=== PATIENT | female | born 1970 | race Two or more races ===

== ENCOUNTER → 2017-02-07 | Outpatient (CLI) | payer OTHER ==
[~2017-02-07] VITALS: Ht 160 cm; Wt 72.6 kg
[~2017-02-07] MED LIST: LIDOCAINE 1%/EPI 1:100,000 20 ML VIAL. INJ ONE; LIDOCAINE 2%/EPI 1:100,000 20 ML VIAL. IJ ONE
[2017-02-07 08:59] VITALS: BP 102/47
--- NOTE | 2017-02-08 16:08 | PATHOLOGY ---
PATHOLOGY REPORT * * * * * * * * FINAL DIAGNOSIS: Breast tissue, left breast mass needle biopsy: - Fibrocystic changes with the following components; a. Cystic change, with focal squamous metaplasia. b. Duct ectasia. c. Stromal fibrosis. d. Chronic inflammation. e. Mild ductal epithelial hyperplasia, focal. COMMENT: There is no atypia or evidence of malignancy. (JPM:mgabdullahi; d/t: 02/08/17) REPORT ELECTRONICALLY SIGNED BY: Sudhakar Duong M.D. DATE/TIME: 02/08/2017 16:07 * * * * * * * * GROSS PATHOLOGY: Received in formalin labeled "Augusto Francis and left breast," are multiple needle cores of yellow-escobar fibrofatty tissue measuring 2.7 x 1.7 x 0.3 cm in aggregate dimensions. The tissue is submitted in its entirety in cassettes A1-A3. The cold ischemic time is 5 minutes. The total formalin fixation time is 12 hours and 10 minutes. (TTL; 02/07/2017) INITIAL CPT CODE(S): A; 02874 Professional services performed [place] [facility] [place] [address] Technical services performed by [facility] at [address] [place] [address], [facility] [address] [place] [address]. SPECIMEN(S) RECEIVED: A.Left breast mass CLINICAL HISTORY: Left breast mass PATIENT: AUGUSTO FRANCIS /AGE: 5 1970 (Age: 46) PATIENT #: [id number] ALT CASE #: SPECIMEN COLLECTION DATE: 02/07/2017 SPECIMEN RECEIVED DATE: 02/07/2017 [facility] - [address] [place] [address] - PHONE: [phone] * * * END OF REPORT * * *
--- NOTE | 2017-02-09 11:49 | RAD ---
Ultrasound-guided vacuum-assisted left breast biopsy, 02/07/2017: History: Suspicious breast nodule An outside studies demonstrated a small hypoechoic nodule at the 3:00 location approximately 1 cm from the nipple. There are multiple nearby dilated ducts and simple cyst. Under local anesthesia, aseptic conditions and sonographic guidance the [employer] biopsy instrument was passed into the posterior aspect of this nodule via an inferolateral approach. Multiple 12-gauge vacuum-assisted core samples were obtained. The lesion probably disappeared during the biopsy process suggesting that lesion was predominantly cystic. A biopsy marker was deposited at the biopsy site. The biopsy instrument was then removed and hemostasis obtained. Two-view postprocedural mammograms were then obtained to document position of the biopsy marker. It lies along the medial aspect of the biopsy site near the midline. The patient tolerated the procedure well and left the department in good condition. The subsequent pathology report indicated the presence of fibrocystic change with duct ectasia and stromal fibrosis and no evidence of malignancy. The findings are considered to be concordant.
== END | disposition home or self-care (01) ==
LOC: US 08:22
PROVIDERS: ATTEND Surgery
DX: R92.8 Other abnormal and inconclusive findings on diagnostic imaging of breast (principal)
CPT/HCPCS: 19081; 76942; C1713; G0206; 77065

== ENCOUNTER → 2017-02-15 | Day surgery (SDC) | payer OTHER ==
[~2017-02-15] VITALS: Ht 160 cm; Wt 76.2 kg
[~2017-02-15] MED LIST changes: +BUPIVAC MPF-EPI 0.5%-1:200000 30 ML VIAL. ONE; +CEFAZOLIN 2GM PREMIX 50 ML IV PRN; +EPHEDRINE PF IN SALINE 50 MG/5 ML DISP.SYRIN. IV ONE; +FAMOTIDINE 20 MG/2 ML VIAL ONE; +FENTANYL PF 100 MCG/2 ML VIAL. IV PRN; +FENTANYL PF 100 MCG/2 ML VIAL. ONE; +HYDR-971 PO; +HYDROCODONE/APAP 5/325MG TABLET. ONE; +HYDROCODONE/APAP 5/325MG TABLET. PO ONE; +HYDROMORPHONE 2 MG/ML VIAL. IV PRN; +IV RINGERS,LACTATED 1000ML 1,000 ML IV SCH; +LIDOCAINE 1% 1 ML SYRINGE. ID PRN; -LIDOCAINE 1%/EPI 1:100,000 20 ML VIAL. INJ ONE; +LIDOCAINE 2% 100 MG/5 ML SYRINGE. ONE; -LIDOCAINE 2%/EPI 1:100,000 20 ML VIAL. IJ ONE; +ONDANSETRON PF 4 MG/2 ML VIAL. IV PRN; +ONDANSETRON PF 4 MG/2 ML VIAL. ONE; +PROCHLORPERAZINE 10 MG/2 ML VIAL. IV PRN; +PROPOFOL 20 ML IV ONE
[2017-02-15 09:18] LABS: NEG OBC UR NEG; POS OBC UR POS
--- NOTE | 2017-02-15 10:58 | DISCH ---
DISCHARGE INSTRUCTIONS Condition on Discharge Condition on Discharge: Stable Activity After Discharge Activity Instructions for Disc: Activity as tolerated, Avoid exertion Driving Instructions after Dis: Do not drive today Diet after Discharge Diet after Discharge: Regular Wound Incision Care Other wound/incision instructi: march show Follow-Up Follow Up With: Marko next week JACQUELINE BEGUM MD Feb 15, 2017 10:58
--- NOTE | 2017-02-15 11:02 | PDOC ---
BRIEF OPERATIVE NOTE Date: Feb 15, 2017 Pre-Op Diagnosis right breast mass Post-Op Diagnosis same Procedure Performed excisional biopsy Surgeon Marko Anesthesia Type: General Blood Loss 10cc IV Fluid 700cc Specimens Obtained right breast mass, 11:00 Findings fibrocystic changes Complications none Additional Remarks # [id number] JACQUELINE BEGUM MD Feb 15, 2017 11:02
[2017-02-15] MEDS: FENTANYL PF 100 MCG/2 ML VIAL. IV PRN ×3 (11:04→11:42)
[2017-02-15] MEDS: MORPHINE SULFATE 2 MG/ML DISP.SYRIN. IV PRN ×2 (11:49→12:00)
[2017-02-15 12:28] VITALS: BP 123/66
--- NOTE | 2017-02-15 12:44 | OP ---
DATE OF SURGERY: 02/15/2017 PREOPERATIVE DIAGNOSIS: Right breast mass, 11 o'clock. POSTOPERATIVE DIAGNOSIS: Right breast mass, 11 o'clock. PROCEDURE: Excisional biopsy. SURGEON: Jacqueline Begum MD ANESTHESIA: General. ESTIMATED BLOOD LOSS: 10 mL. INTRAVENOUS FLUIDS: 700 mL. DESCRIPTION OF PROCEDURE: The patient brought to the operating suite, given a general LMA; the right breast was prepped and draped in usual sterile fashion. A curvilinear incision in the upper outer quadrant, which had been marked with the patient's assistance preop, was infiltrated with local anesthetic, sharply incised and the underlying fibrous tissue removed sharply. Hemostasis with cautery. When present and a correct sponge count was obtained, the breast tissue was approximated with 3-0 Vicryl. The skin was closed with a subcuticular 4-0 Monocryl and Steri-Strips. Sterile dressings applied. The patient awakened from her anesthetic, and taken to the recovery room in satisfactory condition. JACQUELINE BEGUM MD DR: [id number]/[id number] JOB#: [id number] / [id number]
--- NOTE | 2017-02-17 15:34 | PATHOLOGY ---
PATHOLOGY REPORT * * * * * * * * FINAL DIAGNOSIS: Breast tissue, right breast mass excisional biopsy: - Fibrocystic changes with the following components: a. Stromal fibrosis. b. Duct ectasia. c. Cysts. d. Apocrine metaplasia. e. Mild ductal epithelial hyperplasia. - Small radial sclerosing lesion with focal mild to moderate ductal epithelial hyperplasia. - Small intraductal papilloma. - Sclerosing adenosis, focal. - Fibroadenomatous change, focal. COMMENT: There is no evidence of atypia or malignancy. (JPM:mgabdullahi; d/t: 02/17/17) REPORT ELECTRONICALLY SIGNED BY: Sudhakar Duong M.D. DATE/TIME: 02/17/2017 15:32 * * * * * * * * GROSS PATHOLOGY: The specimen is received in formalin, labeled "Augusto Boyce, right breast mass 11:00". Received is an unoriented, well-circumscribed segment of bright yellowpale white fibroadipose breast tissue measuring 4.0 x 3.5 x 2.0 cm. The surgical resection margin is inked black. Sectioning reveals a fibrous, pale whiteyellow cut surface with a small clear fluid filled cyst identified measuring 0.2 cm. No solid masses or nodules are identified. The specimen is sectioned and entirely submitted in cassette [id number]. Cold ischemic time is 1 minute. Total formalin fixation time is 32 hours. (SNA; 02/16/2017) INITIAL CPT CODE(S): A; 12039 Professional services performed by [facility] at [address] [address] Technical services performed by [facility] at [address] [place] [address], [facility] [address] [address]. SPECIMEN(S) RECEIVED: A.Right breast mass 11 o'clock CLINICAL HISTORY: Mass of right breast PATIENT: AUGUSTO FRANCIS /AGE: 5 1970 (Age: 46) PATIENT #: [id number] ALT CASE #: SPECIMEN COLLECTION DATE: 02/15/2017 SPECIMEN RECEIVED DATE: 02/15/2017 [facility] - [address] [place] [address] - PHONE: [phone] * * * END OF REPORT * * *
== END | disposition home or self-care (01) ==
LOC: SURG 08:28
PROVIDERS: ATTEND Surgery
DX: N63 Unspecified lump in breast (principal); Z72.89 Other problems related to lifestyle
CPT/HCPCS: 19120; 81025; C1769; J0690; J2270; J2405; J2704; J3010; J3490; S0028; J0780

== ENCOUNTER 2017-02-18 05:27 | Emergency (ER) | payer BC, OTHER ==
[~2017-02-18] VITALS: Ht 160 cm; Wt 77.6 kg
[~2017-02-18 05:27] MED LIST changes: -BUPIVAC MPF-EPI 0.5%-1:200000 30 ML VIAL. ONE; -CEFAZOLIN 2GM PREMIX 50 ML IV PRN; -EPHEDRINE PF IN SALINE 50 MG/5 ML DISP.SYRIN. IV ONE; -FAMOTIDINE 20 MG/2 ML VIAL ONE; -FENTANYL PF 100 MCG/2 ML VIAL. IV PRN; -FENTANYL PF 100 MCG/2 ML VIAL. ONE; -HYDROCODONE/APAP 5/325MG TABLET. ONE; -HYDROCODONE/APAP 5/325MG TABLET. PO ONE; -HYDROMORPHONE 2 MG/ML VIAL. IV PRN; -IV RINGERS,LACTATED 1000ML 1,000 ML IV SCH; -LIDOCAINE 1% 1 ML SYRINGE. ID PRN; -LIDOCAINE 2% 100 MG/5 ML SYRINGE. ONE; -ONDANSETRON PF 4 MG/2 ML VIAL. IV PRN; -ONDANSETRON PF 4 MG/2 ML VIAL. ONE; -PROCHLORPERAZINE 10 MG/2 ML VIAL. IV PRN; -PROPOFOL 20 ML IV ONE
[2017-02-18 06:07] VITALS: BP 104/55
--- NOTE | 2017-02-18 06:49 | PHYS DOC ---
Past Medical History Past Medical History: Cancer, Other Additional Past Medical Histor: bi lat breast ca Past Surgical History: Other Additional Past Surgical Histo: Umbilical hernia,L)ankle,R)knee. bi lat breast lumpectomy Alcohol Use: None Drug Use: None Adult General Chief Complaint Chief Complaint: ITCHING HPI HPI Patient is a 46 year old female who presents with rash. The patient reports undergoing right lumpectomy on 02/[address] Begum, now complaining of pruritic red rash over her chest, neck, & right arm. She denies fevers/chills, face/ tongue/lip swelling, difficulty breathing. She denies erythema/warmth/swelling around surgical site, no purulent drainage. She believes the rash is in the distribution of betadine application prior to surgery. She states she had a similar reaction after left sided lumpectomy. She took norco after surgery but is no longer using as her pain is well controlled. She denies any known drug allergies. Has not taken any medication for this at home. Review of Systems Review of Systems Constitutional: Denies fever or chills HENT: Denies nasal congestion or sore throat Respiratory: Denies cough or shortness of breath Cardiovascular: Denies chest pain or edema GI: Denies abdominal pain, nausea, vomiting Musculoskeletal: Denies back pain or joint pain Integument: reports rash Neurologic: Denies headache Current Medications Current Medications Current Medications Medications (Trade) Dose Ordered Sig/[facility] Start Time Stop Time Status Last Admin Dose Admin Dexamethasone Sodium Phosphate (Decadron) 10 mg 1X ONCE 02/18/17 07:00 02/18/17 07:01 DC Diphenhydramine HCl (Benadryl) 25 mg 1X ONCE 02/18/17 07:00 02/18/17 07:01 DC Allergies Allergies Allergies Coded Allergies Type Severity Reaction Last Updated Verified No Known Drug Allergies 02/15/17 No Physical Exam Physical Exam Constitutional: Well developed, well nourished, no acute distress, non-toxic appearance. HENT: Normocephalic, atraumatic, bilateral external ears normal, oropharynx moist, nose normal. no face/tongue/lip swelling. Eyes: conjunctiva normal, no discharge. Neck: supple, no stridor. Cardiovascular: RRR, no murmurs, no edema. Lungs & Thorax: LCTAB, no wheezing, no respiratory distress. right breast with lateral incision which is clean, dry, intact, no erythema, warmth or swelling, no purulent drainage, steri strips in place Abdomen: nondistended. Skin: erythematous maculopapular rash over neck, upper chest particularly on the right, & right upper extremity. no urticaria.. Back: No tenderness. Extremities: No deformity. Neurologic: Alert and oriented X 3, no focal deficits noted. Psychologic: Affect normal, judgement normal, mood normal. Current Patient Data Vital Signs Vital Signs Date Time Temp Pulse Resp B/P Pulse Ox O2 Delivery O2 Flow Rate FiO2 02/18/17 06:07 97.9 73 16 104/55 99 Room Air 97.9 EKG EKG [] Radiology/Procedures Radiology/Procedures [] Course & Med Decision Making Course & Med Decision Making Pertinent Labs and Imaging studies reviewed. (See chart for details) Patient presents with likely contact dermatitis. She doesn't want to take pills , requesting cream or ointment. Offered IM injection here but encouraged use of benadryl at home. She received benadryl & decadron here in the ED. Recommend benadryl q6 hours, okay to try 1% hydrocortisone if desired. Follow up with Dr. Begum today or Tuesday if symptoms continue. Come back for high fever, face/tongue/lip swelling, difficulty breathing, signs of wound infection , otherwise worsening condition. Discharged home in stable condition. [] Dragon Disclaimer Dragon Disclaimer This electronic medical record was generated, in whole or in part, using a voice recognition dictation system. Departure Departure Impression: Primary Impression: Contact dermatitis Disposition: 01 HOME, SELF-CARE Condition: STABLE Referrals: NO PCP (PCP) JACQUELINE BEGUM MD Patient Instructions: Contact Dermatitis, [id number] Additional Instructions: You were seen in the emergency department today for rash. This could be due to the solution that was used to clean before surgery, or possibly another medication. Please continue to take Benadryl every 6 hours to help with itching and to help the rash resolve. You said that you prefer to use a cream, so you could try using 1% hydrocortisone twice daily, in addition to benadryl. Call Dr. Begum office today to schedule an appointment today or Tuesday. Return to the emergency department for face/tongue/lip swelling, difficulty breathing, hot /red/swollen skin around the surgical site, pus draining from the incision, any otherwise worsening condition. RADHA OWENS MD Feb 18, 2017 06:49
[2017-02-18] MEDS ORDERED: DIPHENHYDRAMINE 50 MG/ML VIAL. IM ONE (07:00)
[2017-02-18] MEDS ORDERED: DEXAMETHASONE SOD PHOS 4 MG/ML VIAL IM ONE (07:00)
== END 2017-02-18 07:28 | disposition home or self-care (01) ==
LOC: ER 05:27
DX: L25.9 Unspecified contact dermatitis, unspecified cause (principal)
CPT/HCPCS: 96372; 99284; J1100; J1200

== ENCOUNTER 2017-06-06 22:49 | Emergency (ER) | payer BC ==
[~2017-06-06] VITALS: Ht 160 cm; Wt 79.4 kg
[2017-06-06] MEDS ORDERED: ONDANSETRON PF 4 MG/2 ML VIAL. IV ONE (23:30)
[2017-06-06] MEDS ORDERED: fentaNYL PF VIAL 100 MCG/2 ML VIAL IM ONE (23:30)
[2017-06-06 23:37] VITALS: BP 120/60
[2017-06-06 23:39] LABS: BASO # 0.1 x10^3/uL (0.0-0.2); BASO % 1 % (0-3); EOS % 2 % (0-3); HEMOGLOBIN 10.7 g/dL (12.0-15.5); LYMPH # 2.1 x10^3/uL (1.0-4.8); LYMPH % 36 % (24-48); MEAN CORPUSCULAR HEMOGLOBIN 26 pg (25-35); MEAN CORPUSCULAR HGB CONC 33 g/dL (31-37); MEAN CORPUSCULAR VOLUME 79 fL (79-100); MONO % 10 % (0-9); NEUT % 51 % (31-73); PLATELET COUNT 229 x10^3/uL (140-400); RED BLOOD COUNT 4.06 x10^6/uL (3.50-5.40); RED CELL DISTRIBUTION WIDTH 18.2 % (11.5-14.5); WHITE BLOOD COUNT 5.8 x10^3/uL (4.0-11.0)
[2017-06-06 23:45] LABS: BILIRUBIN,URINE NEGATIVE (NEG); GLUCOSE,URINE NEGATIVE (NEG); NITRITE,URINE NEGATIVE (NEG); PH,URINE 7.5; PROTEIN,URINE NEGATIVE (NEG-TRACE)
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
[2017-06-06 23:51] LABS: BACTERIA,URINE FEW /HPF (0-FEW); RBC,URINE 0 /HPF (0-2); SQUAMOUS EPITHELIAL CELL,UR FEW /LPF
[2017-06-06 23:52] LABS: BARBITURATES NEG (NEG); BENZODIAZEPINES NEG (NEG); CANNABINOIDS NEG (NEG); COCAINE NEG (NEG); METHADONE NEG (NEG); OPIATES NEG (NEG); PHENCYCLIDINE NEG (NEG)
[2017-06-06 23:57] LABS: CALCIUM 8.9 mg/dL (8.5-10.1); CREATININE 0.9 mg/dL (0.6-1.0); GFR 66.5; POTASSIUM 3.9 mmol/L (3.5-5.1)
[2017-06-06 23:59] LABS: NEG OBC UR NEG; POS OBC UR POS
[2017-06-06 23:59] LABS: NEG OBC SER NEG; POS OBC SER POS
[2017-06-07 00:03] LABS: ALBUMIN 3.8 g/dL (3.4-5.0); TOTAL BILIRUBIN 0.2 mg/dL (0.2-1.0); TOTAL PROTEIN 7.7 g/dL (6.4-8.2)
[2017-06-07] MEDS ORDERED: fentaNYL PF VIAL 100 MCG/2 ML VIAL IV ONE ×2 (00:15→01:15)
--- NOTE | 2017-06-07 00:51 | RAD ---
CT head without contrast HISTORY: Posterior headache. TECHNIQUE: 5 mm axial noncontrast imaging skull base to vertex. FINDINGS: Portions of the anterior left temporal lobe at the middle cranial fossae and inferior cerebellum and brainstem at the posterior cranial fossa were not included within the [id number] not allowing evaluation of the segments of the brain. The imaged brain demonstrates no intracranial hemorrhage, mass, hydrocephalus, extra-axial fluid collections or infarction. No acute ischemic changes. Orbits, mastoids, paranasal sinuses and bones are unremarkable. IMPRESSION: No acute intracranial CT abnormality. See discussion above. Exposure: One or more of the following individualized dose reduction techniques were utilized for this examination: 1. Automated exposure control 2. Adjustment of the mA and/or kV according to patient size 3. Use of iterative reconstruction technique Electronically signed by: Douglas Dumont MD (06/07/2017 12:48 AM) [facility]
[2017-06-07] MEDS ORDERED: HYDR-2758 PO (02:04)
[2017-06-07] MEDS ORDERED: TRAZ50TA15 PO (02:04)
[2017-06-07] MEDS ORDERED: KETOROLAC TROMETHAMINE 30 MG/ML INJ. IV ONE (02:30)
--- NOTE | 2017-06-07 07:23 | RAD ---
Portable chest, 06/07/2017: History: Chest pain The heart size and pulmonary vascularity are normal. No pulmonary infiltrates are seen. There is no evidence of pleural fluid. IMPRESSION: No acute cardiopulmonary abnormality is detected.
--- NOTE | 2017-06-07 07:54 | EKG ---
[facility] [address] [place] [address] Test Date: 2017-06-06 Test Time: 22:53:54 Pat Name: AUGUSTO SMITH Department: Room: Gender: F [employer]ard Table As[employer]er: : 1970 Requested By: EKATERINA RUIZ Order Number: [id number] Reading MD: Rolly Downs Measurements Intervals [place] Rate: 68 P: 40 GA: 160 QRS: 1 QRSD: 74 T: 30 QT: 382 QTc: 411 Interpretive Statements SINUS RHYTHM NORMAL ECG RI6.01 No previous ECG available for comparison Electronically Signed On 06-07-2017 17:08:18 CDT by Rolly Downs
== END 2017-06-07 02:45 | disposition home or self-care (01) ==
LOC: ER 22:49
DX: R51 Headache (principal); R07.89 Other chest pain; F32.9 Major depressive disorder, single episode, unspecified
CPT/HCPCS: 36415; 70450; 71010; 80053; 80307; 81001; 81025; 84484; 84703; 85027; 93005; 96374; 96375; 96376; 99285; J1885; J2405; J3010; G0479

== ENCOUNTER 2017-10-12 17:46 | Emergency (ER) | payer BC ==
[~2017-10-12 17:46] MED LIST changes: +HYDR-2758 PO; +TRAZ50TA15 PO
[2017-10-12] MEDS ORDERED: IPRATRPIUM/ALBUTEROL 0.5/2.5MG 3 ML NEBU. NEB ONE (18:15)
[2017-10-12] MEDS ORDERED: HYDROcodone/APAP 5/325MG 1 TAB TABLET PO ONE (18:15)
--- NOTE | 2017-10-12 18:25 | PHYS DOC ---
Past Medical History Past Medical History: Cancer, Depression, Other Additional Past Medical Histor: bi lat breast ca Past Surgical History: Other Additional Past Surgical Histo: Umbilical hernia,L)ankle,R)knee. bi lat breast lumpectomy Alcohol Use: None Drug Use: None Adult General Chief Complaint Chief Complaint: FLU SYMPTOM HPI HPI Patient is a 47 year old female who presents with productive cough with chest wall pain, tightness, sore throat 2 weeks. Patient also reports chills, but denies fever, chills nausea and sweats. Patient's taking over-the- counter pain medication without improvement. Should she is nonsmoker and denies history of asthma or chronic pulmonary disease. No other acute symptoms or complaints. [] Review of Systems Review of Systems Review symptoms as per history of present illness. All other review symptoms are negative.[] All other systems were reviewed and found to be within normal limits, except as documented in this note. Current Medications Current Medications Current Medications Medications (Trade) Dose Ordered Sig/Zoila Start Time Stop Time Status Last Admin Dose Admin Acetaminophen/ Hydrocodone Bitart (Lortab 5/325) 1 tab 1X ONCE 10/12/17 18:15 10/12/17 18:18 DC 10/12/17 18:33 1 TAB Albuterol/ Ipratropium (Duoneb) 3 ml 1X ONCE 10/12/17 18:15 10/12/17 18:18 DC 10/12/17 18:50 3 ML Allergies Allergies Allergies Coded Allergies Type Severity Reaction Last Updated Verified No Known Drug Allergies 02/15/17 No Physical Exam Physical Exam Constitutional: Well developed, well nourished, no acute distress, non-toxic appearance. [] HENT: Normocephalic, atraumatic, bilateral external ears normal, oropharynx moist, no oral exudates, nose normal. [] Eyes: PERRLA, EOMI, conjunctiva normal, no discharge. [] Neck: Normal range of motion, no tenderness, supple, no stridor.. [] Cardiovascular:Heart rate regular rhythm, no murmur [] Lungs & Thorax: Respirations nonlabored, coarse rhonchi, no wheezes or rales. [ ] Abdomen: Bowel sounds normal, soft, no tenderness, no masses, no pulsatile masses. [] Skin: Warm, dry, no erythema, no rash. [] Back: No tenderness, no CVA tenderness. [] Extremities: No tenderness, no cyanosis, no clubbing, ROM intact, no edema. [] Neurologic: Alert and oriented X 3, normal motor function, normal sensory function, no focal deficits noted. [] Psychologic: Affect normal, judgement normal, mood normal. [] Current Patient Data Vital Signs Vital Signs Date Time Temp Pulse Resp B/P (MAP) Pulse Ox O2 Delivery O2 Flow Rate FiO2 10/12/17 19:00 97.8 72 101/55 (70) 99 Room Air 97.8 10/12/17 17:59 22 Lab Values Laboratory Tests Test 10/12/17 17:50 Influenza Type A Antigen Negative (NEGATIVE) Influenza Type B Antigen Negative (NEGATIVE) EKG EKG [] Radiology/Procedures Radiology/Procedures [Chest x-ray: No acute cardiopulmonary disease on ED interpretation.] Course & Med Decision Making Course & Med Decision Making Pertinent Labs and Imaging studies reviewed. (See chart for details) [Every bronchitis without respiratory compromise. Influenza negative, no obvious of infiltrate on x-ray. Wi'll treat for bronchitis. PCP follow-up recommended. Return precautions reviewed. Patient's verbalized understanding treatment discharge instructions prior to departure.] Dragon Disclaimer Dragon Disclaimer This electronic medical record was generated, in whole or in part, using a voice recognition dictation system. Departure Departure Impression: Primary Impression: Acute bronchitis Disposition: HOME, SELF-CARE Condition: GOOD Referrals: NO PCP (PCP) FLORENTIN JOLLEY DO Oct 12, 2017 18:24
[2017-10-12 18:57] LABS: OBC FLU VALID
[2017-10-12 19:00] VITALS: BP 101/55
--- NOTE | 2017-10-13 08:23 | RAD ---
Portable chest, 10/12/2017: History: Cough Comparison is made to a study from 06/07/2017. The heart size and pulmonary vascularity are normal. No pulmonary infiltrate is seen. There is no evidence of pleural fluid. IMPRESSION: No acute cardiopulmonary abnormality is detected.
== END 2017-10-12 20:21 | disposition home or self-care (01) ==
LOC: ER 17:46
DX: J20.9 Acute bronchitis, unspecified (principal); F32.9 Major depressive disorder, single episode, unspecified
CPT/HCPCS: 71010; 87804; 94250; 94640; 99285; J7620

== ENCOUNTER 2019-01-15 19:26 | Emergency (ER) | payer SELFPAY ==
[~2019-01-15] VITALS: Ht 157.5 cm; Wt 68.0 kg
[~2019-01-15 19:26] MED LIST changes: -HYDR-2758 PO; +HYDR-2761 PO; +HYDR-3164 PO; -HYDR-971 PO; +TAMO10TA PO; +TRAZ-118 PO; -TRAZ50TA15 PO
[2019-01-15] MEDS ORDERED: NAPROXEN 500 MG TABLET PO STA (19:59)
[2019-01-15 20:20] VITALS: BP 111/59
[2019-01-15] MEDS ORDERED: ALBU2.5V8 INH (21:16)
[2019-01-15] MEDS ORDERED: AZIT250T PO (21:16)
[2019-01-15] MEDS ORDERED: BENZ100C PO (21:16)
--- NOTE | 2019-01-15 21:16 | PHYS DOC ---
Past Medical History Past Medical History: Cancer, Depression, Other Additional Past Medical Histor: bi lat breast ca Past Surgical History: Other Additional Past Surgical Histo: Umbilical hernia,L)ankle,R)knee. bi lat breast lumpectomy Alcohol Use: None Drug Use: None Adult General Chief Complaint Chief Complaint: FLU SYMPTOM HPI HPI Patient is a 48 year old female, accompanied by her family, with comp laints of a cough and a fever for the last eight days. Patient states the cough is productive as green sputum. She reports bodyaches and chills in addition to the cough. She denies any abdominal pain, nausea, vomiting, diarrhea, sore throat, or ear pain. Patient denies any shortness of breath or wheezing. Currently she reports her pain as an 8/10 on the pain scale, ibuprofen has given no relief. Review of Systems Review of Systems Constitutional: See HPI Eyes: Denies change in visual acuity, redness, or eye pain [] HENT: Denies nasal congestion or sore throat [] Respiratory: Denies wheezing or shortness of breath; See HPI Cardiovascular: No additional information not addressed in HPI [] GI: Denies abdominal pain, nausea, vomiting, or diarrhea : Denies dysuria or hematuria [] Musculoskeletal: Denies back pain or joint pain ; See HPI Integument: Denies rash or skin lesions [] Neurologic: Denies headache, focal weakness or sensory changes [] Complete systems were reviewed and found to be within normal limits, except as documented in this note. Current Medications Current Medications Current Medications Medications (Trade) Dose Ordered Sig/Zoila Start Time Stop Time Status Last Admin Dose Admin Naproxen (Naprosyn) 500 mg 1X STAT 01/15/19 19:59 01/15/19 20:03 DC 01/15/19 21:04 500 MG Allergies Allergies Allergies Coded Allergies Type Severity Reaction Last Updated Verified No Known Drug Allergies 02/15/17 No Physical Exam Physical Exam Constitutional: Well developed, well nourished, no acute distress, non-toxic appearance. [] HENT: Normocephalic, atraumatic, bilateral external ears normal, mild erythema posterior pharynx, tonsils normal, oropharynx moist, no oral exudates, nose normal. [] Eyes: PERRLA, EOMI, conjunctiva normal, no discharge. [] Neck: Normal range of motion, no tenderness, supple, no stridor. [] Cardiovascular:Heart rate regular rhythm, no murmur [] Lungs & Thorax: Bilateral breath sounds clear to auscultation in the upper lobes, course posterior, unlabored, no retractions[] Skin: Warm, dry, no erythema, no rash. [] Extremities: No cyanosis, ROM intact, no edema, no deformities. Neurologic: Alert and oriented X 3, no focal deficits noted. [] Psychologic: Affect normal, judgement normal, mood normal. [] Current Patient Data Vital Signs Lab Values Laboratory Tests Test 01/15/19 19:57 Group A Streptococcus Rapid Negative (NEGATIVE) Microbiology 01/15/19 Throat Culture - Final, Complete 01/15/19 - Final, Complete Laboratory Tests Test 01/15/19 19:57 Group A Streptococcus Rapid Negative (NEGATIVE) Microbiology 01/15/19 Throat Culture - Final, Complete 01/15/19 - Final, Complete EKG EKG [] Radiology/Procedures Radiology/Procedures PROCEDURE: CHEST PA & LATERAL PROCEDURE: CHEST PA LATERAL CLINICAL INDICATION: cough, fever x8 days COMPARISON: None FINDINGS: No pneumothorax identified. Cardiac and mediastinal contours unremarkable. No pulmonary consolidation or acute airspace disease. No acute osseous abnormalities identified. IMPRESSION: No pulmonary consolidation or acute airspace disease. [] Course & Med Decision Making Course & Med Decision Making Pertinent Labs and Imaging studies reviewed. (See chart for details) [] Dragon Disclaimer Dragon Disclaimer This electronic medical record was generated, in whole or in part, using a voice recognition dictation system. Departure Departure Impression: Primary Impression: Acute bronchitis Disposition: 01 HOME, SELF-CARE Condition: STABLE Referrals: NO PCP (PCP) Patient Instructions: Acute Bronchitis, [id number] Additional Instructions: Fill prescription(s) and use as directed. Recommend use of a Cool mist humidifier in room at bedtime. Alternate Tylenol or ibuprofen as needed for pain/fever. Increase clear fluids. Avoid airway triggers such as smoke, fragrance, dust, and pollen. May take [id number] cough suppressants as needed. Follow-up with your primary care doctor symptoms persist, return to the ER symptoms worsen. Scripts Benzonatate (TESSALON PERLE) 100 Mg Capsule 1 CAP PO TID PRN for COUGH for 7 Days, #21 CAP 0 Refills Prov: HARVEY HERNANDEZ [employer] ENGINE[employer] 01/15/19 Azithromycin (ZITHROMAX) 250 Mg Tablet 1 PKG PO UD for 5 Days, #6 TAB 0 Refills Prov: HARVEY HERNANDEZ [employer]GRAPHIC ENGINE[employer] 01/15/19 Albuterol Sulfate (Proair Hfa) 8.5 Gm Hfa.aer.ad 2 PUFF INH PRN Q6HRS PRN for SHORTNESS OF BREATH for 10 Days, #1 INHALER 0 Refills Prov: HARVEY HERNANDEZ [employer]GRAPHIC ENGINEER 01/15/19 Problem Qualifiers Primary Impression: Acute bronchitis Bronchitis organism: unspecified organism Qualified Codes: J20.9 - Acute bronchitis, unspecified HARVEY HERNANDEZ HY[employer]GRAPHIC ENGINEER Jan 15, 2019 21:16
--- NOTE | 2019-01-16 00:58 | RAD ---
PROCEDURE: CHEST PA LATERAL CLINICAL INDICATION: cough, fever x8 days COMPARISON: None FINDINGS: No pneumothorax identified. Cardiac and mediastinal contours unremarkable. No pulmonary consolidation or acute airspace disease. No acute osseous abnormalities identified. IMPRESSION: No pulmonary consolidation or acute airspace disease. Electronically signed by: Larry Tipton DO (01/16/2019 12:54 AM) [facility]
== END 2019-01-15 21:34 | disposition home or self-care (01) ==
LOC: ER 19:26
DX: J20.9 Acute bronchitis, unspecified (principal); F32.9 Major depressive disorder, single episode, unspecified
CPT/HCPCS: 71046; 87070; 87880; 99284-25